=== PATIENT | male | born 1960 | race Asian ===

== ENCOUNTER 2018-09-06 15:13 | Inpatient (IN) | payer MEDICAID ==
[~2018-09-06] VITALS: Ht 165.1 cm; Wt 71.2 kg
[2018-09-06 16:00] VITALS: BP 136/84
[2018-09-06 16:20] LABS: BASOPHILS % (AUTO) 0.4 % (0-1); EOSINOPHILS # (AUTO) 0.3 X10'3 (0-0.9); EOSINOPHILS % (AUTO) 3.1 % (0-6); HEMATOCRIT 40.7 % (42.0-52.0); HEMOGLOBIN 13.4 g/dl (14.0-17.9); LYMPHOCYTES # (AUTO) 1.6 X10'3 (1.1-4.8); LYMPHOCYTES % (AUTO) 14.8 % (21-51); MEAN CORPUSCULAR HGB CONC 32.8 % (33.0-36.5); MEAN CORPUSCULAR VOLUME 85.4 FL (78-98); MEAN PLATELET VOLUME 7.3 FL (7.4-10.4); MONOCYTES % (AUTO) 9.3 % (2-12); NEUTROPHILS # (AUTO) 7.8 X10'3 (1.8-7.7); NEUTROPHILS % (AUTO) 72.4 % (42-75); PLATELET COUNT 404 X10'3 (140-440); RED BLOOD COUNT 4.77 X10'6 (4.70-6.10); RED CELL DISTRIBUTION WIDTH 13.8 % (11.5-14.5); WHITE BLOOD COUNT 10.8 X10'3 (4.5-11.0)
[2018-09-06 16:33] LABS: HEMOGLOBIN A1C 12.3 % (4.5-6.2)
[2018-09-06 16:35] LABS: ALANINE AMINOTRANSFERASE 16 U/L (12-78); ALBUMIN 3.2 G/DL (3.4-5.0); ALBUMIN/GLOBULIN RATIO 0.6 (1.1-1.5); ALKALINE PHOSPHATASE 112 IU/L (46-116); ANION GAP 13 (8-16); ASPARTATE AMINO TRANSFERASE 9 U/L (10-37); BILIRUBIN,TOTAL 0.3 MG/DL (0.1-1.0); BLOOD UREA NITROGEN 9 MG/DL (7-18); BUN/CREATININE RATIO 10.7 (5.4-32.0); CALCIUM 9.1 MG/DL (8.5-10.1); CHLORIDE 99 MMOL/L (99-107); CREATININE 0.84 MG/DL (0.60-1.10); GLUCOSE 304 MG/DL (70-104); POTASSIUM 3.2 MMOL/L (3.5-5.1); SODIUM 137 MMOL/L (135-145); TOTAL PROTEIN 8.4 G/DL (6.4-8.2); eGFR > 90 ML/MIN
[2018-09-06 16:56] LABS: CLARITY,URINE CLEAR (Clear); COLOR,URINE YELLOW (Yellow); GLUCOSE, URINE >=1000 mg/dl (Neg); KETONES,URINE 15 mg/dl (Neg); LEUKOCYTE ESTERASE ,URINE NEGATIVE (Neg); NITRITES, URINE NEGATIVE (Neg); OCCULT BLOOD,URINE TRACE-LYSED (Neg); PH,URINE 5.5 (4.8-8.0); PROTEIN,URINE NEGATIVE (Neg); UROBILINOGEN,URINE 0.2 E.U/dL (0.2-1.0)
[2018-09-06 17:36] VITALS: BP 136/84
[2018-09-06 17:38] LABS: UA COLLECTION TYPE VOIDED
[2018-09-06 17:40] LABS: BACTERIA,URINE NONE SEEN /HPF (Neg); RBC,URINE 0-2 /HPF (0-2); SQUAMOUS EPITHELIAL CELL,UR NONE SEEN /LPF (FEW); WBC,URINE NONE SEEN /HPF (0-4)
[2018-09-06] MEDS: K and/or MAG REPLACEMENT MC SCH (18:00)
[2018-09-06] MEDS ORDERED: magnesium 4gm in 100ml NS 100 ML IV PRN (18:00)
[2018-09-06] MEDS ORDERED: magnesium Cl slow-release 64mg tablet PO PRN (18:00)
[2018-09-06] MEDS ORDERED: magnesium 1gm/100ml D5W IVPB 100 ML IV PRN (18:00)
[2018-09-06] MEDS ORDERED: potassium Cl 20 mEq SR tablet PO PRN ×2 (18:00)
[2018-09-06] MEDS ORDERED: potassium Cl 40MEQ/NS 500ml 500 ML IV PRN ×2 (18:00)
[2018-09-06] MEDS ORDERED: ondansetron/PF 4mg/2ml inj IV PRN (18:00)
[2018-09-06 22:00] VITALS: BP 114/78
[2018-09-06] MEDS: HYDROcodone/acetaminophen 5mg/325mg tablet PO PRN (22:00)
[2018-09-07] MEDS ORDERED: piperacillin/tazo 3.375gm/50ml 50 ML IV SCH
[2018-09-07 02:00] VITALS: BP 123/81
[2018-09-07 05:38] LABS: BASOPHILS % (AUTO) 0.5 % (0-1); EOSINOPHILS # (AUTO) 0.3 X10'3 (0-0.9); EOSINOPHILS % (AUTO) 3.3 % (0-6); HEMOGLOBIN 13.3 g/dl (14.0-17.9); LYMPHOCYTES # (AUTO) 1.4 X10'3 (1.1-4.8); MEAN CORPUSCULAR HEMOGLOBIN 27.8 PG (27.0-31.0); MEAN CORPUSCULAR HGB CONC 32.5 % (33.0-36.5); MEAN CORPUSCULAR VOLUME 85.5 FL (78-98); MEAN PLATELET VOLUME 7.7 FL (7.4-10.4); MONOCYTES # (AUTO) 1.2 X10'3 (0-0.9); MONOCYTES % (AUTO) 11.9 % (2-12); NEUTROPHILS % (AUTO) 70.3 % (42-75); PLATELET COUNT 383 X10'3 (140-440); RED BLOOD COUNT 4.79 X10'6 (4.70-6.10); RED CELL DISTRIBUTION WIDTH 13.8 % (11.5-14.5)
[2018-09-07 05:49] LABS: ALBUMIN 2.9 G/DL (3.4-5.0); ANION GAP 10 (8-16); BLOOD UREA NITROGEN 11 MG/DL (7-18); BUN/CREATININE RATIO 12.5 (5.4-32.0); CALCIUM 8.7 MG/DL (8.5-10.1); CHLORIDE 98 MMOL/L (99-107); CREATININE 0.88 MG/DL (0.60-1.10); GLUCOSE 264 MG/DL (70-104); MAGNESIUM 1.7 MG/DL (1.5-2.4); POTASSIUM 3.7 MMOL/L (3.5-5.1); SODIUM 135 MMOL/L (135-145); TOTAL CARBON DIOXIDE 26.6 MMOL/L (24-32); eGFR 89 ML/MIN
[2018-09-07 07:08] VITALS: BP 135/81
[2018-09-07] MEDS: K and/or MAG REPLACEMENT MC SCH (08:00)
[2018-09-07] MEDS: piperacillin/tazo 3.375gm/50ml 50 ML IV SCH ×3 (09:25→19:06)
[2018-09-07] MEDS ORDERED: pneumococcal 23-VAL P-sac vacc 25 mcg/0.5ml vial IMVAC ONE (10:00)
[2018-09-07] MEDS ORDERED: NO HOME MEDS (10:32)
[2018-09-07] MEDS ORDERED: MESSAGE TO PHARMACY PO ONE (10:35)
[2018-09-07] MEDS ORDERED: dextrose ORAL solution 15 GM/59 ML bottle PO PRN (10:35)
[2018-09-07] MEDS ORDERED: dextrose 50%-water 50ml dispensing syringe IV PRN ×2 (10:35)
[2018-09-07] MEDS ORDERED: glucagon, human recombinant 1mg kit SUBCUT PRN (10:35)
[2018-09-07 11:06] LABS: HIV ANTIBODY 1&2 RAPID NON-REACTIVE (Neg)
[2018-09-07] MEDS ORDERED: insulin glargine (Lantus) pen - multi-dose SQ ONE (11:45)
[2018-09-07 11:59] VITALS: BP 124/74
[2018-09-07] MEDS: insulin Lispro (HumaLOG) vial - multi-dose SQ SCH ×2 (13:58→19:08)
[2018-09-07 16:07] VITALS: BP 121/74
[2018-09-07 18:00] VITALS: BP 120/80
[2018-09-07] MEDS: HYDROcodone/acetaminophen 5mg/325mg tablet PO PRN (19:55)
[2018-09-07] MEDS: insulin glargine (Lantus) pen - multi-dose SQ SCH (21:25)
[2018-09-07 22:00] VITALS: BP 111/71
[2018-09-08] MEDS: piperacillin/tazo 3.375gm/50ml 50 ML IV SCH ×4 (01:32→21:44)
[2018-09-08] MEDS: HYDROcodone/acetaminophen 5mg/325mg tablet PO PRN ×4 (01:37→19:20)
[2018-09-08 02:00] VITALS: BP 107/84
[2018-09-08 06:00] VITALS: BP 104/73
[2018-09-08 06:38] LABS: BASOPHILS % (AUTO) 0.4 % (0-1); EOSINOPHILS # (AUTO) 0.3 X10'3 (0-0.9); EOSINOPHILS % (AUTO) 2.6 % (0-6); HEMATOCRIT 41.4 % (42.0-52.0); HEMOGLOBIN 13.5 g/dl (14.0-17.9); LYMPHOCYTES # (AUTO) 1.4 X10'3 (1.1-4.8); LYMPHOCYTES % (AUTO) 11.6 % (21-51); MEAN CORPUSCULAR HEMOGLOBIN 27.7 PG (27.0-31.0); MEAN CORPUSCULAR HGB CONC 32.6 % (33.0-36.5); MEAN CORPUSCULAR VOLUME 84.9 FL (78-98); MEAN PLATELET VOLUME 7.6 FL (7.4-10.4); MONOCYTES # (AUTO) 1.2 X10'3 (0-0.9); MONOCYTES % (AUTO) 9.7 % (2-12); NEUTROPHILS # (AUTO) 9.5 X10'3 (1.8-7.7); NEUTROPHILS % (AUTO) 75.7 % (42-75); PLATELET COUNT 407 X10'3 (140-440); RED BLOOD COUNT 4.87 X10'6 (4.70-6.10); RED CELL DISTRIBUTION WIDTH 13.4 % (11.5-14.5); WHITE BLOOD COUNT 12.5 X10'3 (4.5-11.0)
[2018-09-08 06:52] LABS: ALBUMIN 2.8 G/DL (3.4-5.0); ANION GAP 10 (8-16); BLOOD UREA NITROGEN 16 MG/DL (7-18); BUN/CREATININE RATIO 16.8 (5.4-32.0); CALCIUM 8.9 MG/DL (8.5-10.1); CHLORIDE 97 MMOL/L (99-107); CREATININE 0.95 MG/DL (0.60-1.10); GLUCOSE 194 MG/DL (70-104); MAGNESIUM 1.8 MG/DL (1.5-2.4); POTASSIUM 3.9 MMOL/L (3.5-5.1); SODIUM 135 MMOL/L (135-145); TOTAL CARBON DIOXIDE 27.6 MMOL/L (24-32); eGFR 81 ML/MIN
[2018-09-08] MEDS: K and/or MAG REPLACEMENT MC SCH (08:00)
[2018-09-08] MEDS: lactose-reduced food (Ensure High Protein) 237ml bottle PO SCH ×3 (08:00→18:00)
[2018-09-08] MEDS: lactobacillus rhamnosus 10,000 MMU CELLS/CAPSULE PO SCH ×2 (08:18→19:20)
[2018-09-08] MEDS: insulin Lispro (HumaLOG) vial - multi-dose SQ SCH ×3 (08:24→19:23)
[2018-09-08] MEDS ORDERED: pneumococcal 23-VAL P-sac vacc 25 mcg/0.5ml vial IMVAC ONE (10:45)
[2018-09-08 11:00] VITALS: BP 106/70
[2018-09-08 15:00] VITALS: BP 102/62
[2018-09-08 19:00] VITALS: BP 120/71
[2018-09-08] MEDS: vancomycin/NS 1 GM ADD-VANTAGE 250 ML IV SCH (19:20)
[2018-09-08] MEDS: insulin glargine (Lantus) pen - multi-dose SQ SCH (21:44)
[2018-09-08 23:00] VITALS: BP 94/63
[2018-09-09] MEDS: HYDROcodone/acetaminophen 5mg/325mg tablet PO PRN ×3 (00:21→13:40)
[2018-09-09] MEDS: piperacillin/tazo 3.375gm/50ml 50 ML IV SCH ×3 (02:24→13:27)
[2018-09-09 03:00] VITALS: BP 104/68
[2018-09-09 06:00] VITALS: BP 113/71
[2018-09-09 06:35] LABS: BASOPHILS # (AUTO) 0.1 X10'3 (0-0.2); BASOPHILS % (AUTO) 0.6 % (0-1); EOSINOPHILS # (AUTO) 0.3 X10'3 (0-0.9); EOSINOPHILS % (AUTO) 2.2 % (0-6); HEMATOCRIT 39.3 % (42.0-52.0); HEMOGLOBIN 12.7 g/dl (14.0-17.9); LYMPHOCYTES # (AUTO) 1.3 X10'3 (1.1-4.8); MEAN CORPUSCULAR HEMOGLOBIN 27.4 PG (27.0-31.0); MEAN CORPUSCULAR HGB CONC 32.5 % (33.0-36.5); MEAN CORPUSCULAR VOLUME 84.5 FL (78-98); MEAN PLATELET VOLUME 7.2 FL (7.4-10.4); MONOCYTES # (AUTO) 1.3 X10'3 (0-0.9); MONOCYTES % (AUTO) 9.5 % (2-12); NEUTROPHILS # (AUTO) 10.5 X10'3 (1.8-7.7); NEUTROPHILS % (AUTO) 77.7 % (42-75); PLATELET COUNT 416 X10'3 (140-440); RED BLOOD COUNT 4.65 X10'6 (4.70-6.10); RED CELL DISTRIBUTION WIDTH 13.5 % (11.5-14.5); WHITE BLOOD COUNT 13.5 X10'3 (4.5-11.0)
[2018-09-09 06:50] LABS: ALBUMIN 2.7 G/DL (3.4-5.0); ANION GAP 10 (8-16); BLOOD UREA NITROGEN 15 MG/DL (7-18); BUN/CREATININE RATIO 18.1 (5.4-32.0); CALCIUM 8.6 MG/DL (8.5-10.1); CHLORIDE 96 MMOL/L (99-107); CREATININE 0.83 MG/DL (0.60-1.10); GLUCOSE 158 MG/DL (70-104); MAGNESIUM 1.7 MG/DL (1.5-2.4); POTASSIUM 3.6 MMOL/L (3.5-5.1); SODIUM 133 MMOL/L (135-145); TOTAL CARBON DIOXIDE 26.7 MMOL/L (24-32); eGFR > 90 ML/MIN
[2018-09-09] MEDS: lactobacillus rhamnosus 10,000 MMU CELLS/CAPSULE PO SCH ×2 (07:02→19:37)
[2018-09-09] MEDS: vancomycin/NS 1 GM ADD-VANTAGE 250 ML IV SCH (07:02)
[2018-09-09] MEDS: K and/or MAG REPLACEMENT MC SCH (08:00)
[2018-09-09] MEDS: lactose-reduced food (Ensure High Protein) 237ml bottle PO SCH ×3 (08:00→18:00)
[2018-09-09] MEDS: insulin Lispro (HumaLOG) vial - multi-dose SQ SCH ×3 (09:06→19:32)
[2018-09-09] MEDS ORDERED: tuberculin, purif. prot. deriv. 5 units/0.1ml ID ONE (10:00)
[2018-09-09 11:00] VITALS: BP 124/72
[2018-09-09 15:00] VITALS: BP 123/65
[2018-09-09] MEDS: guaiFENesin/codeine phos 10ml UD oral syrup PO PRN ×2 (15:13→21:25)
[2018-09-09] MEDS: azithromycin/NS 500mg/250ml 250 ML IV SCH (15:13)
[2018-09-09] MEDS: rifampin 300mg capsule PO SCH (16:11)
[2018-09-09] MEDS: pyridoxine 50mg tablet PO SCH (16:11)
[2018-09-09] MEDS: ethambutol 400mg tablet PO SCH (16:12)
[2018-09-09 19:00] VITALS: BP 123/62
[2018-09-09] MEDS: temazepam 15mg capsule PO PRN (21:25)
[2018-09-09] MEDS: insulin glargine (Lantus) pen - multi-dose SQ SCH (21:35)
[2018-09-09] MEDS ORDERED: acetaminophen 325mg tablet PO PRN (22:40)
[2018-09-09 23:00] VITALS: BP 119/61
[2018-09-10 03:00] VITALS: BP 102/50
[2018-09-10 06:00] VITALS: BP 105/66
[2018-09-10 06:07] LABS: BASOPHILS # (AUTO) 0.1 X10'3 (0-0.2); BASOPHILS % (AUTO) 0.5 % (0-1); EOSINOPHILS # (AUTO) 0.3 X10'3 (0-0.9); EOSINOPHILS % (AUTO) 2.5 % (0-6); HEMATOCRIT 39.3 % (42.0-52.0); HEMOGLOBIN 12.8 g/dl (14.0-17.9); LYMPHOCYTES # (AUTO) 1.3 X10'3 (1.1-4.8); LYMPHOCYTES % (AUTO) 10.3 % (21-51); MEAN CORPUSCULAR HGB CONC 32.6 % (33.0-36.5); MEAN PLATELET VOLUME 7.4 FL (7.4-10.4); MONOCYTES # (AUTO) 1.6 X10'3 (0-0.9); NEUTROPHILS # (AUTO) 9.1 X10'3 (1.8-7.7); NEUTROPHILS % (AUTO) 73.7 % (42-75); PLATELET COUNT 415 X10'3 (140-440); RED BLOOD COUNT 4.57 X10'6 (4.70-6.10); RED CELL DISTRIBUTION WIDTH 13.6 % (11.5-14.5); WHITE BLOOD COUNT 12.3 X10'3 (4.5-11.0)
[2018-09-10 06:42] LABS: ALBUMIN 2.7 G/DL (3.4-5.0); ANION GAP 10 (8-16); BLOOD UREA NITROGEN 15 MG/DL (7-18); BUN/CREATININE RATIO 16.7 (5.4-32.0); CALCIUM 8.9 MG/DL (8.5-10.1); CHLORIDE 98 MMOL/L (99-107); GLUCOSE 119 MG/DL (70-104); MAGNESIUM 1.9 MG/DL (1.5-2.4); SODIUM 137 MMOL/L (135-145); TOTAL CARBON DIOXIDE 28.8 MMOL/L (24-32); eGFR 87 ML/MIN
[2018-09-10] MEDS: rifampin 300mg capsule PO SCH (07:20)
[2018-09-10] MEDS: pyridoxine 50mg tablet PO SCH (07:20)
[2018-09-10] MEDS: lactobacillus rhamnosus 10,000 MMU CELLS/CAPSULE PO SCH ×2 (07:20→20:56)
[2018-09-10] MEDS: ethambutol 400mg tablet PO SCH (07:21)
[2018-09-10] MEDS: guaiFENesin/codeine phos 10ml UD oral syrup PO PRN ×3 (07:21→20:56)
[2018-09-10] MEDS: azithromycin/NS 500mg/250ml 250 ML IV SCH (07:21)
[2018-09-10] MEDS ORDERED: VANCOMYCIN LEVEL IV ONE (07:30)
[2018-09-10] MEDS: K and/or MAG REPLACEMENT MC SCH (07:45)
[2018-09-10] MEDS: lactose-reduced food (Ensure High Protein) 237ml bottle PO SCH ×3 (08:00→18:00)
[2018-09-10] MEDS ORDERED: pneumococcal 23-VAL P-sac vacc 25 mcg/0.5ml vial IMVAC ONE (08:00)
[2018-09-10] MEDS: insulin Lispro (HumaLOG) vial - multi-dose SQ SCH ×3 (09:57→18:53)
[2018-09-10] MEDS: HYDROcodone/acetaminophen 5mg/325mg tablet PO PRN ×2 (09:58→22:18)
[2018-09-10] MEDS ORDERED: lactulose 20gm/30ml cup PO ONE (10:35)
[2018-09-10 11:00] VITALS: BP 106/66
[2018-09-10 15:00] VITALS: BP 100/66
[2018-09-10 19:00] VITALS: BP 111/69
[2018-09-10] MEDS: temazepam 15mg capsule PO PRN (20:56)
[2018-09-10] MEDS: insulin glargine (Lantus) pen - multi-dose SQ SCH (21:27)
[2018-09-10 23:00] VITALS: BP 105/63
[2018-09-11 03:00] VITALS: BP 105/66
[2018-09-11 06:42] VITALS: BP 111/71
[2018-09-11 07:58] LABS: BASOPHILS # (AUTO) 0.1 X10'3 (0-0.2); BASOPHILS % (AUTO) 0.7 % (0-1); EOSINOPHILS # (AUTO) 0.4 X10'3 (0-0.9); EOSINOPHILS % (AUTO) 3.6 % (0-6); HEMATOCRIT 38.9 % (42.0-52.0); HEMOGLOBIN 12.6 g/dl (14.0-17.9); LYMPHOCYTES # (AUTO) 1.1 X10'3 (1.1-4.8); LYMPHOCYTES % (AUTO) 9.2 % (21-51); MEAN CORPUSCULAR HEMOGLOBIN 27.5 PG (27.0-31.0); MEAN CORPUSCULAR HGB CONC 32.4 % (33.0-36.5); MEAN PLATELET VOLUME 7.2 FL (7.4-10.4); MONOCYTES # (AUTO) 0.9 X10'3 (0-0.9); MONOCYTES % (AUTO) 7.8 % (2-12); NEUTROPHILS # (AUTO) 9.1 X10'3 (1.8-7.7); NEUTROPHILS % (AUTO) 78.7 % (42-75); PLATELET COUNT 481 X10'3 (140-440); RED BLOOD COUNT 4.57 X10'6 (4.70-6.10); RED CELL DISTRIBUTION WIDTH 13.8 % (11.5-14.5); WHITE BLOOD COUNT 11.6 X10'3 (4.5-11.0)
[2018-09-11] MEDS: K and/or MAG REPLACEMENT MC SCH (08:00)
[2018-09-11] MEDS: lactose-reduced food (Ensure High Protein) 237ml bottle PO SCH ×4 (08:00→20:05)
[2018-09-11] MEDS: insulin Lispro (HumaLOG) vial - multi-dose SQ SCH ×3 (08:04→20:03)
[2018-09-11] MEDS: pyridoxine 50mg tablet PO SCH (08:06)
[2018-09-11] MEDS: rifampin 300mg capsule PO SCH (08:06)
[2018-09-11] MEDS: ethambutol 400mg tablet PO SCH (08:06)
[2018-09-11] MEDS: HYDROcodone/acetaminophen 5mg/325mg tablet PO PRN ×3 (08:06→22:21)
[2018-09-11] MEDS: lactobacillus rhamnosus 10,000 MMU CELLS/CAPSULE PO SCH ×2 (08:06→20:06)
[2018-09-11] MEDS: azithromycin/NS 500mg/250ml 250 ML IV SCH (08:07)
[2018-09-11 08:12] LABS: ALANINE AMINOTRANSFERASE 22 U/L (12-78); ALBUMIN 2.8 G/DL (3.4-5.0); ALBUMIN/GLOBULIN RATIO 0.5 (1.1-1.5); ALKALINE PHOSPHATASE 130 IU/L (46-116); ANION GAP 11 (8-16); ASPARTATE AMINO TRANSFERASE 18 U/L (10-37); BILIRUBIN,TOTAL 0.5 MG/DL (0.1-1.0); BLOOD UREA NITROGEN 14 MG/DL (7-18); BUN/CREATININE RATIO 17.1 (5.4-32.0); CALCIUM 8.8 MG/DL (8.5-10.1); CHLORIDE 96 MMOL/L (99-107); CREATININE 0.82 MG/DL (0.60-1.10); GLUCOSE 156 MG/DL (70-104); MAGNESIUM 1.8 MG/DL (1.5-2.4); POTASSIUM 3.9 MMOL/L (3.5-5.1); SODIUM 133 MMOL/L (135-145); TOTAL CARBON DIOXIDE 26.4 MMOL/L (24-32); TOTAL PROTEIN 8.2 G/DL (6.4-8.2); eGFR > 90 ML/MIN
[2018-09-11] MEDS: guaiFENesin/codeine phos 10ml UD oral syrup PO PRN ×3 (08:18→23:36)
[2018-09-11 12:01] VITALS: BP 140/93
[2018-09-11 17:07] VITALS: BP 106/72
[2018-09-11 19:00] VITALS: BP 110/69
[2018-09-11] MEDS: insulin glargine (Lantus) pen - multi-dose SQ SCH (22:10)
[2018-09-11] MEDS: temazepam 15mg capsule PO PRN (22:22)
[2018-09-11 23:00] VITALS: BP 115/71
[2018-09-12 03:00] VITALS: BP 111/67
[2018-09-12 06:00] VITALS: BP 125/75
[2018-09-12 06:17] LABS: ALANINE AMINOTRANSFERASE 23 U/L (12-78); ALBUMIN 2.5 G/DL (3.4-5.0); ALBUMIN/GLOBULIN RATIO 0.5 (1.1-1.5); ALKALINE PHOSPHATASE 134 IU/L (46-116); ANION GAP 11 (8-16); ASPARTATE AMINO TRANSFERASE 15 U/L (10-37); BILIRUBIN,TOTAL 0.3 MG/DL (0.1-1.0); BLOOD UREA NITROGEN 16 MG/DL (7-18); BUN/CREATININE RATIO 20.8 (5.4-32.0); CALCIUM 8.7 MG/DL (8.5-10.1); CHLORIDE 100 MMOL/L (99-107); CREATININE 0.77 MG/DL (0.60-1.10); GLUCOSE 167 MG/DL (70-104); MAGNESIUM 1.9 MG/DL (1.5-2.4); POTASSIUM 3.9 MMOL/L (3.5-5.1); SODIUM 137 MMOL/L (135-145); TOTAL CARBON DIOXIDE 26.3 MMOL/L (24-32); TOTAL PROTEIN 7.9 G/DL (6.4-8.2); eGFR > 90 ML/MIN
[2018-09-12] MEDS: guaiFENesin/codeine phos 10ml UD oral syrup PO PRN ×3 (06:46→19:33)
[2018-09-12] MEDS: HYDROcodone/acetaminophen 5mg/325mg tablet PO PRN ×4 (06:46→21:53)
[2018-09-12] MEDS: ethambutol 400mg tablet PO SCH (07:28)
[2018-09-12] MEDS: lactobacillus rhamnosus 10,000 MMU CELLS/CAPSULE PO SCH ×2 (07:28→19:33)
[2018-09-12] MEDS: rifampin 300mg capsule PO SCH (07:28)
[2018-09-12] MEDS: pyridoxine 50mg tablet PO SCH (07:28)
[2018-09-12] MEDS: azithromycin/NS 500mg/250ml 250 ML IV SCH (07:29)
[2018-09-12] MEDS: K and/or MAG REPLACEMENT MC SCH (07:33)
[2018-09-12] MEDS: insulin Lispro (HumaLOG) vial - multi-dose SQ SCH ×3 (08:02→18:48)
[2018-09-12] MEDS: lactose-reduced food (Ensure High Protein) 237ml bottle PO SCH ×3 (08:03→18:01)
[2018-09-12 11:00] VITALS: BP 102/62
[2018-09-12 15:00] VITALS: BP 100/60
[2018-09-12 19:00] VITALS: BP 128/84
[2018-09-12] MEDS: dextrose ORAL solution 15 GM/59 ML bottle PO PRN (21:34)
[2018-09-12] MEDS: temazepam 15mg capsule PO PRN (21:53)
[2018-09-12] MEDS: insulin glargine (Lantus) pen - multi-dose SQ SCH (21:59)
[2018-09-12 23:00] VITALS: BP 105/57
[2018-09-13] MEDS: HYDROcodone/acetaminophen 5mg/325mg tablet PO PRN (02:57)
[2018-09-13] MEDS: guaiFENesin/codeine phos 10ml UD oral syrup PO PRN ×3 (02:58→19:18)
[2018-09-13 03:00] VITALS: BP 106/71
[2018-09-13 06:49] LABS: ALANINE AMINOTRANSFERASE 17 U/L (12-78); ALBUMIN 2.6 G/DL (3.4-5.0); ALBUMIN/GLOBULIN RATIO 0.5 (1.1-1.5); ALKALINE PHOSPHATASE 122 IU/L (46-116); ANION GAP 8 (8-16); ASPARTATE AMINO TRANSFERASE 18 U/L (10-37); BILIRUBIN,TOTAL 0.2 MG/DL (0.1-1.0); BLOOD UREA NITROGEN 20 MG/DL (7-18); BUN/CREATININE RATIO 23.5 (5.4-32.0); CALCIUM 9.2 MG/DL (8.5-10.1); CHLORIDE 100 MMOL/L (99-107); CREATININE 0.85 MG/DL (0.60-1.10); GLUCOSE 198 MG/DL (70-104); MAGNESIUM 1.8 MG/DL (1.5-2.4); SODIUM 135 MMOL/L (135-145); TOTAL CARBON DIOXIDE 27.5 MMOL/L (24-32); TOTAL PROTEIN 7.8 G/DL (6.4-8.2); eGFR > 90 ML/MIN
[2018-09-13 07:00] VITALS: BP 103/70
[2018-09-13] MEDS: azithromycin/NS 500mg/250ml 250 ML IV SCH (07:41)
[2018-09-13] MEDS: lactobacillus rhamnosus 10,000 MMU CELLS/CAPSULE PO SCH ×2 (07:43→19:18)
[2018-09-13] MEDS: pyridoxine 50mg tablet PO SCH (07:43)
[2018-09-13] MEDS: K and/or MAG REPLACEMENT MC SCH (08:00)
[2018-09-13] MEDS: lactose-reduced food (Ensure High Protein) 237ml bottle PO SCH ×3 (08:00→18:00)
[2018-09-13] MEDS: rifampin 300mg capsule PO SCH (08:52)
[2018-09-13] MEDS: ethambutol 400mg tablet PO SCH (09:04)
[2018-09-13] MEDS: insulin Lispro (HumaLOG) vial - multi-dose SQ SCH ×3 (09:11→19:31)
[2018-09-13 11:00] VITALS: BP 122/74
[2018-09-13 15:00] VITALS: BP 118/72
[2018-09-13 19:00] VITALS: BP 109/69
[2018-09-13] MEDS: insulin glargine (Lantus) pen - multi-dose SQ SCH (21:47)
[2018-09-13 23:00] VITALS: BP 103/65
[2018-09-14 03:00] VITALS: BP 107/74
[2018-09-14] MEDS: guaiFENesin/codeine phos 10ml UD oral syrup PO PRN ×3 (03:09→22:18)
[2018-09-14] MEDS: HYDROcodone/acetaminophen 5mg/325mg tablet PO PRN (03:13)
[2018-09-14 06:00] VITALS: BP 123/68
[2018-09-14 06:17] LABS: ALANINE AMINOTRANSFERASE 26 U/L (12-78); ALBUMIN 2.7 G/DL (3.4-5.0); ALBUMIN/GLOBULIN RATIO 0.5 (1.1-1.5); ALKALINE PHOSPHATASE 135 IU/L (46-116); ANION GAP 12 (8-16); ASPARTATE AMINO TRANSFERASE 20 U/L (10-37); BILIRUBIN,TOTAL 0.2 MG/DL (0.1-1.0); BLOOD UREA NITROGEN 15 MG/DL (7-18); CALCIUM 8.9 MG/DL (8.5-10.1); CHLORIDE 99 MMOL/L (99-107); CREATININE 0.79 MG/DL (0.60-1.10); GLUCOSE 158 MG/DL (70-104); POTASSIUM 4.2 MMOL/L (3.5-5.1); SODIUM 137 MMOL/L (135-145); TOTAL CARBON DIOXIDE 26.1 MMOL/L (24-32); TOTAL PROTEIN 8.2 G/DL (6.4-8.2); eGFR > 90 ML/MIN
[2018-09-14] MEDS: lactose-reduced food (Ensure High Protein) 237ml bottle PO SCH ×3 (08:00→18:37)
[2018-09-14] MEDS: K and/or MAG REPLACEMENT MC SCH (08:00)
[2018-09-14] MEDS: pyridoxine 50mg tablet PO SCH (09:12)
[2018-09-14] MEDS: rifampin 300mg capsule PO SCH (09:13)
[2018-09-14] MEDS: ethambutol 400mg tablet PO SCH (09:13)
[2018-09-14] MEDS: insulin Lispro (HumaLOG) vial - multi-dose SQ SCH ×3 (09:20→20:06)
[2018-09-14] MEDS: azithromycin/NS 500mg/250ml 250 ML IV SCH (09:23)
[2018-09-14] MEDS: lactobacillus rhamnosus 10,000 MMU CELLS/CAPSULE PO SCH ×2 (09:24→20:06)
[2018-09-14 11:00] VITALS: BP 93/60
[2018-09-14 15:00] VITALS: BP 116/76
[2018-09-14 19:00] VITALS: BP 108/70
[2018-09-14] MEDS: insulin glargine (Lantus) pen - multi-dose SQ SCH (21:00)
[2018-09-14 23:00] VITALS: BP 132/77
[2018-09-15 03:00] VITALS: BP 118/71
[2018-09-15 06:00] VITALS: BP 97/68
[2018-09-15 06:15] LABS: ALANINE AMINOTRANSFERASE 32 U/L (12-78); ALBUMIN 2.8 G/DL (3.4-5.0); ALBUMIN/GLOBULIN RATIO 0.5 (1.1-1.5); ALKALINE PHOSPHATASE 130 IU/L (46-116); ANION GAP 8 (8-16); ASPARTATE AMINO TRANSFERASE 26 U/L (10-37); BILIRUBIN,TOTAL 0.2 MG/DL (0.1-1.0); BLOOD UREA NITROGEN 17 MG/DL (7-18); BUN/CREATININE RATIO 22.1 (5.4-32.0); CALCIUM 9.2 MG/DL (8.5-10.1); CHLORIDE 101 MMOL/L (99-107); CREATININE 0.77 MG/DL (0.60-1.10); GLUCOSE 153 MG/DL (70-104); POTASSIUM 4.1 MMOL/L (3.5-5.1); SODIUM 137 MMOL/L (135-145); TOTAL CARBON DIOXIDE 27.7 MMOL/L (24-32); TOTAL PROTEIN 8.1 G/DL (6.4-8.2); eGFR > 90 ML/MIN
[2018-09-15] MEDS: lactobacillus rhamnosus 10,000 MMU CELLS/CAPSULE PO SCH ×2 (07:33→19:22)
[2018-09-15] MEDS: pyridoxine 50mg tablet PO SCH (07:33)
[2018-09-15] MEDS: ethambutol 400mg tablet PO SCH (07:33)
[2018-09-15] MEDS: rifampin 300mg capsule PO SCH (07:33)
[2018-09-15] MEDS: azithromycin/NS 500mg/250ml 250 ML IV SCH (07:34)
[2018-09-15] MEDS: lactose-reduced food (Ensure High Protein) 237ml bottle PO SCH ×3 (07:39→18:00)
[2018-09-15] MEDS: K and/or MAG REPLACEMENT MC SCH (08:00)
[2018-09-15] MEDS: insulin Lispro (HumaLOG) vial - multi-dose SQ SCH ×4 (09:07→20:46)
[2018-09-15 11:00] VITALS: BP 100/67
[2018-09-15 15:00] VITALS: BP 106/63
[2018-09-15] MEDS: dextrose ORAL solution 15 GM/59 ML bottle PO PRN (17:09)
[2018-09-15 18:00] VITALS: BP 126/79
[2018-09-15] MEDS: guaiFENesin/codeine phos 10ml UD oral syrup PO PRN (19:22)
[2018-09-15] MEDS: insulin glargine (Lantus) pen - multi-dose SQ SCH (20:47)
[2018-09-15 22:00] VITALS: BP 108/69
[2018-09-16 02:00] VITALS: BP 108/72
[2018-09-16 06:00] VITALS: BP 107/75
[2018-09-16 06:00] LABS: BASOPHILS # (AUTO) 0.1 X10'3 (0-0.2); BASOPHILS % (AUTO) 0.8 % (0-1); EOSINOPHILS # (AUTO) 0.5 X10'3 (0-0.9); EOSINOPHILS % (AUTO) 4.7 % (0-6); HEMATOCRIT 38.4 % (42.0-52.0); HEMOGLOBIN 12.4 g/dl (14.0-17.9); LYMPHOCYTES # (AUTO) 1.5 X10'3 (1.1-4.8); LYMPHOCYTES % (AUTO) 15.4 % (21-51); MEAN CORPUSCULAR HEMOGLOBIN 27.8 PG (27.0-31.0); MEAN CORPUSCULAR HGB CONC 32.4 % (33.0-36.5); MEAN CORPUSCULAR VOLUME 85.8 FL (78-98); MEAN PLATELET VOLUME 6.9 FL (7.4-10.4); MONOCYTES # (AUTO) 0.6 X10'3 (0-0.9); MONOCYTES % (AUTO) 6.1 % (2-12); NEUTROPHILS # (AUTO) 7.2 X10'3 (1.8-7.7); PLATELET COUNT 581 X10'3 (140-440); RED BLOOD COUNT 4.48 X10'6 (4.70-6.10); RED CELL DISTRIBUTION WIDTH 14.1 % (11.5-14.5); WHITE BLOOD COUNT 9.8 X10'3 (4.5-11.0)
[2018-09-16 06:19] LABS: ALANINE AMINOTRANSFERASE 47 U/L (12-78); ALBUMIN 2.8 G/DL (3.4-5.0); ALBUMIN/GLOBULIN RATIO 0.5 (1.1-1.5); ALKALINE PHOSPHATASE 130 IU/L (46-116); ANION GAP 9 (8-16); ASPARTATE AMINO TRANSFERASE 38 U/L (10-37); BILIRUBIN,TOTAL 0.2 MG/DL (0.1-1.0); BLOOD UREA NITROGEN 20 MG/DL (7-18); BUN/CREATININE RATIO 25.3 (5.4-32.0); CALCIUM 9.6 MG/DL (8.5-10.1); CHLORIDE 101 MMOL/L (99-107); CREATININE 0.79 MG/DL (0.60-1.10); GLUCOSE 105 MG/DL (70-104); POTASSIUM 3.8 MMOL/L (3.5-5.1); SODIUM 139 MMOL/L (135-145); TOTAL PROTEIN 8.2 G/DL (6.4-8.2); eGFR > 90 ML/MIN
[2018-09-16] MEDS: lactose-reduced food (Ensure High Protein) 237ml bottle PO SCH ×3 (08:00→18:00)
[2018-09-16] MEDS: K and/or MAG REPLACEMENT MC SCH (08:00)
[2018-09-16] MEDS: lactobacillus rhamnosus 10,000 MMU CELLS/CAPSULE PO SCH ×2 (08:58→21:07)
[2018-09-16] MEDS: rifampin 300mg capsule PO SCH (08:58)
[2018-09-16] MEDS: azithromycin/NS 500mg/250ml 250 ML IV SCH (08:59)
[2018-09-16] MEDS: pyridoxine 50mg tablet PO SCH (08:59)
[2018-09-16] MEDS: ethambutol 400mg tablet PO SCH (08:59)
[2018-09-16] MEDS: insulin Lispro (HumaLOG) vial - multi-dose SQ SCH ×2 (09:08→19:17)
[2018-09-16 12:00] VITALS: BP 106/70
[2018-09-16] MEDS: dextrose ORAL solution 15 GM/59 ML bottle PO PRN (12:12)
[2018-09-16 16:13] VITALS: BP 109/73
[2018-09-16] MEDS: guaiFENesin/codeine phos 10ml UD oral syrup PO PRN (17:28)
[2018-09-16 18:00] VITALS: BP 113/80
[2018-09-16] MEDS: insulin glargine (Lantus) pen - multi-dose SQ SCH (21:14)
[2018-09-16 22:00] VITALS: BP 100/69
[2018-09-17 02:00] VITALS: BP 107/63
[2018-09-17 06:00] VITALS: BP 116/80
[2018-09-17] MEDS: azithromycin/NS 500mg/250ml 250 ML IV SCH (07:27)
[2018-09-17] MEDS: pyridoxine 50mg tablet PO SCH (07:27)
[2018-09-17] MEDS: lactobacillus rhamnosus 10,000 MMU CELLS/CAPSULE PO SCH ×2 (07:28→19:54)
[2018-09-17] MEDS: rifampin 300mg capsule PO SCH (07:28)
[2018-09-17] MEDS: ethambutol 400mg tablet PO SCH (07:28)
[2018-09-17] MEDS: lactose-reduced food (Ensure High Protein) 237ml bottle PO SCH ×3 (08:00→18:13)
[2018-09-17] MEDS: K and/or MAG REPLACEMENT MC SCH (08:00)
[2018-09-17 08:07] LABS: ALBUMIN 2.9 G/DL (3.4-5.0); ALBUMIN/GLOBULIN RATIO 0.6 (1.1-1.5); ANION GAP 6 (8-16); ASPARTATE AMINO TRANSFERASE 33 U/L (10-37); BILIRUBIN,TOTAL 0.2 MG/DL (0.1-1.0); BLOOD UREA NITROGEN 18 MG/DL (7-18); BUN/CREATININE RATIO 21.2 (5.4-32.0); CALCIUM 9.3 MG/DL (8.5-10.1); CHLORIDE 101 MMOL/L (99-107); CREATININE 0.85 MG/DL (0.60-1.10); GLUCOSE 131 MG/DL (70-104); SODIUM 136 MMOL/L (135-145); TOTAL PROTEIN 8.1 G/DL (6.4-8.2); eGFR > 90 ML/MIN
[2018-09-17 08:08] LABS: ALANINE AMINOTRANSFERASE 50 U/L (12-78); ALKALINE PHOSPHATASE 129 IU/L (46-116)
[2018-09-17] MEDS: insulin Lispro (HumaLOG) vial - multi-dose SQ SCH ×3 (09:49→20:01)
[2018-09-17 11:00] VITALS: BP 112/68
[2018-09-17 15:00] VITALS: BP 106/67
[2018-09-17 18:00] VITALS: BP 102/72
[2018-09-17] MEDS: guaiFENesin/codeine phos 10ml UD oral syrup PO PRN (19:54)
[2018-09-17] MEDS: HYDROcodone/acetaminophen 5mg/325mg tablet PO PRN (20:15)
[2018-09-17] MEDS: insulin glargine (Lantus) pen - multi-dose SQ SCH (21:00)
[2018-09-17 22:00] VITALS: BP 125/65
[2018-09-18 02:00] VITALS: BP 116/77
[2018-09-18 07:24] LABS: ALANINE AMINOTRANSFERASE 49 U/L (12-78); ALBUMIN/GLOBULIN RATIO 0.6 (1.1-1.5); ALKALINE PHOSPHATASE 119 IU/L (46-116); ANION GAP 9 (8-16); ASPARTATE AMINO TRANSFERASE 28 U/L (10-37); BILIRUBIN,TOTAL 0.3 MG/DL (0.1-1.0); BLOOD UREA NITROGEN 16 MG/DL (7-18); BUN/CREATININE RATIO 19.3 (5.4-32.0); CALCIUM 9.2 MG/DL (8.5-10.1); CHLORIDE 100 MMOL/L (99-107); CREATININE 0.83 MG/DL (0.60-1.10); GLUCOSE 175 MG/DL (70-104); POTASSIUM 4.1 MMOL/L (3.5-5.1); SODIUM 136 MMOL/L (135-145); TOTAL CARBON DIOXIDE 26.9 MMOL/L (24-32); TOTAL PROTEIN 8.2 G/DL (6.4-8.2); eGFR > 90 ML/MIN
[2018-09-18 07:27] VITALS: BP 107/75
[2018-09-18] MEDS: K and/or MAG REPLACEMENT MC SCH (08:00)
[2018-09-18] MEDS: HYDROcodone/acetaminophen 5mg/325mg tablet PO PRN ×3 (08:44→19:12)
[2018-09-18] MEDS: docusate sod 100mg capsule PO SCH (08:44)
[2018-09-18] MEDS: ethambutol 400mg tablet PO SCH (08:44)
[2018-09-18] MEDS: lactobacillus rhamnosus 10,000 MMU CELLS/CAPSULE PO SCH ×2 (08:44→19:12)
[2018-09-18] MEDS: pyridoxine 50mg tablet PO SCH (08:45)
[2018-09-18] MEDS: rifampin 300mg capsule PO SCH (08:45)
[2018-09-18] MEDS: insulin Lispro (HumaLOG) vial - multi-dose SQ SCH ×3 (08:54→19:20)
[2018-09-18] MEDS: lactose-reduced food (Ensure High Protein) 237ml bottle PO SCH ×3 (08:55→18:25)
[2018-09-18] MEDS: azithromycin/NS 500mg/250ml 250 ML IV SCH (08:56)
[2018-09-18 11:00] VITALS: BP 112/75
[2018-09-18] MEDS: guaiFENesin/codeine phos 10ml UD oral syrup PO PRN ×2 (13:29→22:07)
[2018-09-18 15:00] VITALS: BP 109/73
[2018-09-18 19:00] VITALS: BP 107/72
[2018-09-18] MEDS: insulin glargine (Lantus) pen - multi-dose SQ SCH (22:07)
[2018-09-18 23:00] VITALS: BP 112/69
[2018-09-19] VITALS (7 sets, daily range): BP systolic 90–116; BP diastolic 54–69
[2018-09-19] MEDS: ethambutol 400mg tablet PO SCH (07:31)
[2018-09-19] MEDS: azithromycin/NS 500mg/250ml 250 ML IV SCH (07:31)
[2018-09-19] MEDS: rifampin 300mg capsule PO SCH (07:31)
[2018-09-19] MEDS: lactobacillus rhamnosus 10,000 MMU CELLS/CAPSULE PO SCH ×2 (07:31→20:24)
[2018-09-19] MEDS: docusate sod 100mg capsule PO SCH (07:31)
[2018-09-19] MEDS: pyridoxine 50mg tablet PO SCH (07:31)
[2018-09-19] MEDS: guaiFENesin/codeine phos 10ml UD oral syrup PO PRN ×3 (07:37→20:24)
[2018-09-19] MEDS: lactose-reduced food (Ensure High Protein) 237ml bottle PO SCH ×3 (08:00→18:30)
[2018-09-19] MEDS: K and/or MAG REPLACEMENT MC SCH (08:00)
[2018-09-19 08:27] LABS: ALANINE AMINOTRANSFERASE 43 U/L (12-78); ALBUMIN 2.9 G/DL (3.4-5.0); ALBUMIN/GLOBULIN RATIO 0.6 (1.1-1.5); ALKALINE PHOSPHATASE 108 IU/L (46-116); ANION GAP 7 (8-16); ASPARTATE AMINO TRANSFERASE 22 U/L (10-37); BILIRUBIN,TOTAL 0.2 MG/DL (0.1-1.0); BLOOD UREA NITROGEN 14 MG/DL (7-18); BUN/CREATININE RATIO 17.3 (5.4-32.0); CALCIUM 9.3 MG/DL (8.5-10.1); CHLORIDE 101 MMOL/L (99-107); CREATININE 0.81 MG/DL (0.60-1.10); GLUCOSE 124 MG/DL (70-104); SODIUM 137 MMOL/L (135-145); TOTAL CARBON DIOXIDE 29.2 MMOL/L (24-32); TOTAL PROTEIN 8.1 G/DL (6.4-8.2); eGFR > 90 ML/MIN
[2018-09-19] MEDS: insulin Lispro (HumaLOG) vial - multi-dose SQ SCH ×3 (10:21→20:30)
[2018-09-19] MEDS: insulin glargine (Lantus) pen - multi-dose SQ SCH (22:37)
[2018-09-20 03:00] VITALS: BP 104/71
[2018-09-20 06:00] VITALS: BP 116/77
[2018-09-20] MEDS: K and/or MAG REPLACEMENT MC SCH (08:00)
[2018-09-20] MEDS: lactose-reduced food (Ensure High Protein) 237ml bottle PO SCH ×3 (08:13→17:56)
[2018-09-20] MEDS: insulin Lispro (HumaLOG) vial - multi-dose SQ SCH ×3 (08:23→19:27)
[2018-09-20] MEDS: rifampin 300mg capsule PO SCH (08:29)
[2018-09-20] MEDS: ethambutol 400mg tablet PO SCH (08:29)
[2018-09-20] MEDS: lactobacillus rhamnosus 10,000 MMU CELLS/CAPSULE PO SCH ×2 (08:30→19:43)
[2018-09-20] MEDS: docusate sod 100mg capsule PO SCH (08:30)
[2018-09-20] MEDS: pyridoxine 50mg tablet PO SCH (08:31)
[2018-09-20] MEDS: guaiFENesin/codeine phos 10ml UD oral syrup PO PRN (08:37)
[2018-09-20 11:00] VITALS: BP 106/75
[2018-09-20 15:00] VITALS: BP 115/78
[2018-09-20] MEDS: dextrose ORAL solution 15 GM/59 ML bottle PO PRN (17:23)
[2018-09-20 19:00] VITALS: BP 107/68
[2018-09-20] MEDS: HYDROcodone/acetaminophen 5mg/325mg tablet PO PRN (19:44)
[2018-09-20] MEDS: insulin glargine (Lantus) pen - multi-dose SQ SCH (21:41)
[2018-09-20 23:00] VITALS: BP 111/71
[2018-09-21 07:08] VITALS: BP 125/79
[2018-09-21] MEDS: K and/or MAG REPLACEMENT MC SCH (08:00)
[2018-09-21] MEDS: rifampin 300mg capsule PO SCH (09:01)
[2018-09-21] MEDS: pyridoxine 50mg tablet PO SCH (09:02)
[2018-09-21] MEDS: ethambutol 400mg tablet PO SCH (09:02)
[2018-09-21] MEDS: lactobacillus rhamnosus 10,000 MMU CELLS/CAPSULE PO SCH (09:02)
[2018-09-21] MEDS: docusate sod 100mg capsule PO SCH (09:02)
[2018-09-21] MEDS: lactose-reduced food (Ensure High Protein) 237ml bottle PO SCH (09:04)
[2018-09-21] MEDS: insulin Lispro (HumaLOG) vial - multi-dose SQ SCH ×2 (09:08→13:24)
[2018-09-21] MEDS: guaiFENesin/codeine phos 10ml UD oral syrup PO PRN (09:09)
[2018-09-21] MEDS: HYDROcodone/acetaminophen 5mg/325mg tablet PO PRN (11:59)
[2018-09-21] MEDS ORDERED: RIFA300C4 PO (12:58)
[2018-09-21] MEDS ORDERED: PYRA500T21 PO (12:58)
[2018-09-21] MEDS ORDERED: ISON300T4 PO (12:58)
[2018-09-21] MEDS ORDERED: ETHA400T8 PO (12:58)
[2018-09-21] MEDS ORDERED: PYRI25TA4 PO (12:58)
== END 2018-09-21 13:45 | disposition home or self-care (01) | DRG 720 ==
LOC: PCU 3S 15:58
PROVIDERS: ADMIT Internal Medicine; ATTEND Internal Medicine
PROC: 3E02340 Introduction of Influenza Vaccine into Muscle, Percutaneous Approach (ICD-10-PCS; principal; 2018-09-10)
PROC: 3E0234Z Introduction of Serum, Toxoid and Vaccine into Muscle, Percutaneous Approach (ICD-10-PCS; 2018-09-10)
DX: A41.9 Sepsis, unspecified organism (principal); E11.65 Type 2 diabetes mellitus with hyperglycemia; A15.0 Tuberculosis of lung; E78.5 Hyperlipidemia, unspecified; I10 Essential (primary) hypertension; Z23 Encounter for immunization; Z79.899 Other long term (current) drug therapy; Z87.891 Personal history of nicotine dependence
CPT/HCPCS: 36415; 71045; 71250; 80048; 80053; 81001; 82948; 83036; 83735; 84145; 85025; 85610; 86703; 87070; 87102; 87210; 87305; 90732; G0378; J0456; J1815; J2543; J3370; Q2037